=== PATIENT | male | born 1980 | race Caucasian/White ===

== ENCOUNTER 2019-12-10 05:49 | Inpatient (IN) | payer BC ==
[2019-12-07 08:37] VITALS: BMI 27.1
[2019-12-10] MEDS ORDERED: THROMBIN (BOVINE) 20,000 UNIT VIAL TP ONE (13:53)
[2019-12-10] MEDS ORDERED: BUPIVACAINE LIPOSOME/PF (EXPAREL) 266 MG/20 ML VIAL ONE (13:53)
[2019-12-10] MEDS ORDERED: HEPARIN NA (PORCINE) 5,000 UNITS/ML 1ML VIAL ONE (13:53)
[2019-12-10] MEDS ORDERED: morphine SULFATE/PF 0.5 MG/ML (2cc Syringe - QUVA) ONE (14:18)
[2019-12-10] MEDS ORDERED: PROPOFOL 20 ML ONE ×14 (14:20→18:50)
[2019-12-10] MEDS ORDERED: fentaNYL CITRATE 250 MCG/5 ML VIAL ONE ×2 (14:28)
[2019-12-10] MEDS ORDERED: SUCCINYLCHOLINE CHLORIDE 200 MG/10 ML SYRINGE ONE (14:28)
[2019-12-10] MEDS ORDERED: MIDAZOLAM HCL 2 MG/2 ML SINGLE DOSE VIAL ONE (14:28)
[2019-12-10] MEDS ORDERED: ROCURONIUM BROMIDE 50 MG/5 ML SYRINGE ONE (14:29)
[2019-12-10] MEDS ORDERED: VANCOMYCIN 1,000 MG VIAL (RESTRICTED TO ID ONLY) IVPB ONE (15:00)
[2019-12-10] MEDS ORDERED: ceFAZolin SODIUM 1 GM VIAL IVPB ONE (15:00)
[2019-12-10] MEDS ORDERED: BUPIVACAINE HCL/PF 0.5% (5 MG/ML) 30 ML VIAL IJ ONE (16:28)
[2019-12-10] MEDS ORDERED: THROMBIN (BOVINE) 5,000 UNIT VIAL TP ONE (16:28)
[2019-12-10] MEDS ORDERED: BUPIVACAINE LIPOSOME/PF (EXPAREL) 266 MG/20 ML VIAL NR ONE (16:29)
[2019-12-10] MEDS ORDERED: TRANEXAMIC ACID 1000 MG/10 ML VIAL ONE ×2 (17:26)
[2019-12-10] MEDS ORDERED: VANCOMYCIN 1,000 MG VIAL (RESTRICTED TO ID ONLY) ONE (17:27)
[2019-12-10] MEDS ORDERED: ceFAZolin SODIUM 1 GM VIAL ONE ×3 (17:27→19:04)
[2019-12-10] MEDS ORDERED: morphine SULFATE/PF 0.5 MG/ML (2cc Syringe - QUVA) IT ONE (19:07)
[2019-12-10] MEDS ORDERED: oxyCODONE HCL 5 MG TABLET PO PRN (19:07)
[2019-12-10] MEDS ORDERED: ONDANSETRON 4 MG/2 ML VIAL IVPUSH PRN ×3 (19:07→20:45)
[2019-12-10] MEDS ORDERED: NALOXONE HCL 0.4 MG/ML VIAL IVPUSH PRN (19:07)
[2019-12-10] MEDS ORDERED: PROMETHAZINE HCL 25 MG/1 ML VIAL IVPUSH PRN (19:15)
[2019-12-10] MEDS ORDERED: ACETAMINOPHEN 325 MG TABLET (FP) PO SCH (19:15)
[2019-12-10] MEDS ORDERED: BENZOIN/ALOE VERA/STORAX/TOLU 58 ML BOTTLE ONE (20:11)
[2019-12-10] MEDS ORDERED: BENZOIN/ALOE VERA/STORAX/TOLU 58 ML BOTTLE TP ONE (20:21)
[2019-12-10] MEDS ORDERED: diazePAM CARPU-JECT 10 MG/2 ML DISP.SYRIN IVPUSH PRN (20:45)
[2019-12-10] MEDS ORDERED: ONDANSETRON 4 MG/2 ML VIAL ONE (20:50)
[2019-12-10] MEDS: ACETAMINOPHEN 1000 MG/100 ML VIAL (NON FORMULARY) IVPB SCH (21:22)
[2019-12-10] MEDS ORDERED: PROMETHAZINE HCL 25 MG/1 ML VIAL ONE (21:24)
[2019-12-10] MEDS: LACTATED RINGERS SOLUTION 1,000 ML IV SCH (22:21)
[2019-12-11] MEDS: MORPHINE SULFATE 2 MG/ML VIAL IVPUSH PRN ×4 (00:23→20:05)
[2019-12-11] MEDS: ceFAZolin 2 GRAM PREMIX BAG IVPB SCH ×3 (00:30→12:27)
[2019-12-11] MEDS: VANCOMYCIN 1 GM in D5W (PRE-DOCKED) 1,000 MG/250 ML IVPB SCH ×2 (03:15→15:31)
[2019-12-11] MEDS: ACETAMINOPHEN 1000 MG/100 ML VIAL (NON FORMULARY) IVPB SCH ×2 (05:03→12:00)
[2019-12-11 06:46] LABS: HEMATOCRIT 39.5 % (35.4-49); MCH 28.5 pg (25.7-33.7); MEAN CELL VOLUME 86.5 fl (80-96); MEAN PLT VOLUME 8.6 fl (7.5-11.1); PLATELET COUNT 197 K/MM3 (134-434); RBC 4.57 M/mm3 (4.00-5.60); RDW 13.6 % (11.9-15.9); WHITE BLOOD COUNT 16.6 K/mm3 (4.0-10.0)
[2019-12-11 07:26] LABS: POTASSIUM 4.3 mmol/L (3.5-5.1)
[2019-12-11 07:34] LABS: BLOOD UREA NITROGEN 13.5 mg/dL (7-18); CALCIUM 8.4 mg/dL (8.5-10.1)
[2019-12-11 07:38] LABS: CREATININE 0.8 mg/dL (0.55-1.3)
[2019-12-11] MEDS: oxyCODONE HCL 10 MG SUSTAINED ACTING TABLET PO SCH ×2 (18:10→21:46)
[2019-12-11] MEDS: LACTATED RINGERS SOLUTION 1,000 ML IV SCH (21:52)
[2019-12-11] MEDS ORDERED: HYDROmorphone HCl 2 MG/ML VIAL IVPUSH ONE (23:24)
[2019-12-11] MEDS ORDERED: MELATONIN 5 MG TABLETS PO ONE (23:28)
[2019-12-12] MEDS: MORPHINE SULFATE 2 MG/ML VIAL IVPUSH PRN ×2 (02:12→06:56)
[2019-12-12 07:16] LABS: HEMATOCRIT 36.8 % (35.4-49); HEMOGLOBIN 12.3 GM/dL (11.7-16.9); MCH 28.6 pg (25.7-33.7); MCHC 33.4 g/dl (32.0-35.9); MEAN CELL VOLUME 85.7 fl (80-96); MEAN PLT VOLUME 8.3 fl (7.5-11.1); PLATELET COUNT 179 K/MM3 (134-434); RBC 4.29 M/mm3 (4.00-5.60); RDW 13.1 % (11.9-15.9); WHITE BLOOD COUNT 14.2 K/mm3 (4.0-10.0)
[2019-12-12 07:37] LABS: POTASSIUM 3.8 mmol/L (3.5-5.1)
[2019-12-12 07:52] LABS: TOT PROT 6.1 g/dl (6.4-8.2)
[2019-12-12 07:53] LABS: ALBUMIN 3.2 g/dl (3.4-5.0)
[2019-12-12 07:55] LABS: BILIRUBIN,TOTAL 0.7 mg/dL (0.2-1); BLOOD UREA NITROGEN 10.7 mg/dL (7-18); CALCIUM 8.9 mg/dL (8.5-10.1); CREATININE 0.7 mg/dL (0.55-1.3)
[2019-12-12 07:56] LABS: MAGNESIUM 1.8 mg/dL (1.8-2.4); PHOSPHOROUS 2.2 mg/dL (2.5-4.9)
[2019-12-12] MEDS ORDERED: HYDROmorphone HCl 2 MG/ML VIAL SQ ONE (08:00)
[2019-12-12] MEDS ORDERED: ONDANSETRON 4 MG/2 ML VIAL IVPUSH PRN (08:03)
[2019-12-12] MEDS ORDERED: DOCUSATE SODIUM 100 MG CAPSULE (FP) PO PRN (08:27)
[2019-12-12] MEDS: ACETAMINOPHEN 1000 MG/100 ML VIAL (NON FORMULARY) IVPB SCH ×3 (09:00→22:10)
[2019-12-12] MEDS ORDERED: NAPH,MB-DB/K PH,MBDB POWDER PACKET PO ONE (09:01)
[2019-12-12] MEDS: oxyCODONE HCL 10 MG SUSTAINED ACTING TABLET PO SCH (09:39)
[2019-12-12] MEDS ORDERED: FLU VACCINE (FLULAVAL) PF 60 MCG/0.5 ML SYRINGE 2020-2021 IM ONE (11:00)
[2019-12-12] MEDS: HYDROmorphone HCl 2 MG/ML VIAL SQ PRN ×2 (15:00→21:45)
[2019-12-12] MEDS: LACTATED RINGERS SOLUTION 1,000 ML IV SCH (20:45)
[2019-12-13] MEDS: HYDROmorphone HCl 2 MG/ML VIAL SQ PRN ×3 (03:38→17:31)
[2019-12-13] MEDS: ACETAMINOPHEN 1000 MG/100 ML VIAL (NON FORMULARY) IVPB SCH (03:39)
[2019-12-13 07:29] LABS: POTASSIUM 3.9 mmol/L (3.5-5.1)
[2019-12-13 07:35] LABS: CALCIUM 8.9 mg/dL (8.5-10.1)
[2019-12-13 07:36] LABS: BLOOD UREA NITROGEN 10.6 mg/dL (7-18)
[2019-12-13 07:39] LABS: BASO % 0.3 % (0-2.0); CREATININE 0.7 mg/dL (0.55-1.3); EOS % 0.2 % (0-4.5); HEMATOCRIT 36.3 % (35.4-49); HEMOGLOBIN 12.4 GM/dL (11.7-16.9); LYMPH % 11.7 % (8-40); MEAN CELL VOLUME 85.3 fl (80-96); MEAN PLT VOLUME 8.3 fl (7.5-11.1); MONO % 10.6 % (3.8-10.2); NEUT % 77.2 % (42.8-82.8); PHOSPHOROUS 2.5 mg/dL (2.5-4.9); PLATELET COUNT 175 K/MM3 (134-434); RBC 4.25 M/mm3 (4.00-5.60); RDW 13.3 % (11.9-15.9); WHITE BLOOD COUNT 10.6 K/mm3 (4.0-10.0)
[2019-12-13 07:40] LABS: BILIRUBIN,TOTAL 0.7 mg/dL (0.2-1); TOT PROT 6.2 g/dl (6.4-8.2)
[2019-12-13] MEDS: oxyCODONE HCL 5 MG TABLET PO PRN ×2 (07:55→15:01)
[2019-12-13 17:34] VITALS: BP 128/69; PULSE 100
[2019-12-13 19:20] VITALS: TEMP 99.6
== END 2019-12-13 19:15 | disposition home or self-care (01) | DRG 455 ==
LOC: J2C 05:49 → JICU 22:01
PROVIDERS: ADMIT Orthopaedic Surgery Adult Reconstructive Orthopaedic Surgery; ATTEND Orthopaedic Surgery Orthopaedic Surgery of the Spine
PROC: 0SG1071 Fusion of 2 or more Lumbar Vertebral Joints with Autologous Tissue Substitute, Posterior Approach, Posterior Column, Open Approach (ICD-10-PCS; 2019-12-10)
PROC: 0SB20ZZ Excision of Lumbar Vertebral Disc, Open Approach (ICD-10-PCS; 2019-12-10)
PROC: 0SP004Z Removal of Internal Fixation Device from Lumbar Vertebral Joint, Open Approach (ICD-10-PCS; 2019-12-10)
PROC: 0SP304Z Removal of Internal Fixation Device from Lumbosacral Joint, Open Approach (ICD-10-PCS; 2019-12-10)
PROC: 0SG3071 Fusion of Lumbosacral Joint with Autologous Tissue Substitute, Posterior Approach, Posterior Column, Open Approach (ICD-10-PCS; 2019-12-10)
PROC: 0QS004Z Reposition Lumbar Vertebra with Internal Fixation Device, Open Approach (ICD-10-PCS; 2019-12-10)
PROC: B01BZZZ Fluoroscopy of Spinal Cord (ICD-10-PCS; 2019-12-10)
PROC: 07DR0ZZ Extraction of Iliac Bone Marrow, Open Approach (ICD-10-PCS; 2019-12-10)
PROC: 4A11X4G Monitoring of Peripheral Nervous Electrical Activity, Intraoperative, External Approach (ICD-10-PCS; 2019-12-10)
PROC: 0SG10AJ Fusion of 2 or more Lumbar Vertebral Joints with Interbody Fusion Device, Posterior Approach, Anterior Column, Open Approach (ICD-10-PCS; principal; 2019-12-10 11:15)
DX: M47.26 Other spondylosis with radiculopathy, lumbar region (principal); M51.86 Other intervertebral disc disorders, lumbar region; M48.07 Spinal stenosis, lumbosacral region; M46.07 Spinal enthesopathy, lumbosacral region; M40.209 Unspecified kyphosis, site unspecified
CPT/HCPCS: 36415; 72100-TC-FY; 76000-TC-FY; 80048; 80053; 83735; 84100; 85025; 85027; 86850; 86900; 86901; 88300-TC; 88304-TC; 93005; 93010; 94010; 94760; 97116-GP; 97161-GP; G0008; J0131; J1644; Q2036